=== PATIENT | female | born 1990 | race African-American/Black ===

== ENCOUNTER 2016-11-03 10:43 | Emergency (ER) | payer OTHER ==
[2016-11-03 10:51] VITALS: BP 153/72; PULSE 76; TEMP 98.1; BMI 51.7
--- NOTE | 2016-11-03 11:32 | PDOC ---
History of Present Illness - General Chief Complaint: Head/Neck problem Stated Complaint: NECK PAIN Time Seen by Provider: 11/03/16 11:03 History Source: Patient Exam Limitations: No Limitations - History of Present Illness Initial Comments: CHIEF COMPLAINT: 26 y/o afebrile, morbidly obese female c/o right sided neck pain x 2 weeks. HISTORY OF PRESENT ILLNESS: The patient states she thinks she slept funny because she woke up with this pain 2 weeks ago. She does not like to take pills so she applied hot and cold rags to help with the pain without relief. She has avoided moving her neck because it hurts and decided to take tylenol once or twice with little relief. She states "I do not like to take pills". She denies trauma to head/neck, f/c, numbness/tingling in upper extremities. Vital signs on arrival are within normal limits. REVIEW OF SYSTEMS: GENERAL/CONSTITUTIONAL: No fever/chills. No weakness. No weight change. HEAD, EYES, EARS, NOSE AND THROAT: No change in vision. No ear pain or discharge. No sore throat. MUSCULOSKELETAL: No joint or muscle swelling or pain. No back pain. +right sided neck pain SKIN: No rash or easy bruising. NEUROLOGIC: No headache, vertigo, loss of consciousness, or loss of sensation. PHYSICAL EXAM: GENERAL: The patient is awake, alert, and fully oriented, in no acute distress. She is morbidly obese and ambulatory. HEAD: Normal with no signs of trauma. NECK: No midline cervical spine TTP, step offs or crepitus. Pain elicited with palpation of right trapezius and SCM muscles. Pain elicited with lateral neck movements of head towards right shoulder. ENT: Pupils equal, round and reactive to light, extraocular movements intact, sclera anicteric, conjunctiva clear. NEUROLOGICAL: Normal speech, normal gait. CN II-XII grossly intact. SKIN: Warm, dry, normal turgor, no rashes or lesions noted. Past History - Past Medical History Allergies/Adverse Reactions: Allergies Allergy/AdvReac Type Severity Reaction Status Date / Time No Known Allergies Allergy Verified 11/03/16 10:48 Home Medications: Ambulatory Orders No Home Medications 0 dose .ROUTE UTDICT 02/13/12 Diabetes: Yes - Reproductive History (#): 1 Para: 0 Therapeutic (s) & number: No Spontaneous : 0 - Psycho/Social/Smoking Cessation Hx Anxiety: No Suicidal Ideation: No Smoking Status: No Smoking History: Never smoked Number of Cigarettes Smoked Daily: 0 *Physical Exam - Vital Signs Last Vital Signs Temp Pulse Resp BP Pulse Ox 98.1 F 76 19 153/72 97 11/03/16 10:48 11/03/16 10:48 11/03/16 10:48 11/03/16 10:48 11/03/16 10:48 Medical Decision Making - Medical Decision Making A/P: 26 y/o afebrile female with torticollis. Plan is as follows: 1. hcg hcg - negative 2. PO Motrin Suggested the patient take 600mg of Ibuprofen every 6 hours with food for pain, stretch and massage affected area multiple times per day. Suggested she f/u with Dr. Eldridge in 1 week if no improvement in symptoms. The patient verbalizes understanding of all instructions, has no further questions and is awaiting discharge. *DC/Admit/Observation/Transfer Diagnosis at time of Disposition: Torticollis, acute - Discharge Dispostion Disposition: HOME Condition at time of disposition: Good - Referrals Referrals: Isamar Eldridge MD [Primary Care Provider] - - Patient Instructions Printed Discharge Instructions: DI for Torticollis Additional Instructions: Discharge Instructions: -Take 600mg of over the counter Ibuprofen every 6 hours with food for pain -Stretch your neck hourly until you start feeling better -Massage neck to help with pain -Follow up with Dr. Eldridge in 1 week if no improvement in symptoms -Return to the ER with any worsening or concerning symptoms
[2016-11-03] MEDS ORDERED: IBUPROFEN 600 MG TABLET (FP) PO ONE ×2 (11:34→11:39)
== END 2016-11-03 11:48 | disposition home or self-care (01) ==
LOC: JERFT 10:43
DX: M43.6 Torticollis (principal); E66.01 Morbid (severe) obesity due to excess calories; Z68.43 Body mass index [BMI] 50.0-59.9, adult
CPT/HCPCS: 84703; 99281-25